=== PATIENT | female | born 1985 | race Caucasian/White ===

== ENCOUNTER 2016-07-30 07:00 | Day surgery (SDC) | payer OTHER ==
[~2016-07-30] VITALS: Ht 157.5 cm; Wt 61.1 kg
[~2016-07-30 07:00] MED LIST: BUPR200T34 PO; IBUP800T28 PO; OXYC-407 PO
[2016-07-30] MEDS ORDERED: Succinylcholine Chloride 20 mg/mL 5 mL Inj ONE (07:01)
[2016-07-30] MEDS ORDERED: fentaNYL-PF 50 mCg/mL 2 mL Inj ONE (07:01)
[2016-07-30] MEDS ORDERED: Dexamethasone 4 mg/mL Inj ONE (07:01)
[2016-07-30] MEDS ORDERED: Neostigmine 1 mg/mL 10 mL Inj ONE (07:01)
[2016-07-30] MEDS ORDERED: Ondansetron 2 mg/mL 2 mL Inj ONE (07:01)
[2016-07-30] MEDS ORDERED: MetoCLOpramide 5 mg/mL 2 mL Inj ONE (07:01)
[2016-07-30] MEDS ORDERED: Glycopyrrolate 0.2 MG/ML 1mL Inj ONE (07:01)
[2016-07-30] MEDS ORDERED: Rocuronium 10 mg/mL 5 mL Inj ONE (07:01)
[2016-07-30] MEDS ORDERED: Propofol 10,000 mCg/mL 20 mL Inj ONE (07:01)
[2016-07-30 07:15] VITALS: BP 110/59; PULSE 77; RESP 16; O2SAT 100
[2016-07-30] MEDS: Lactated Ringer's 1,000 ML IV SCH ×2 (07:15→08:46)
[2016-07-30 07:39] LABS: BASOPHILS % (AUTO) 0.2 % (0-3); EOSINOPHILS % (AUTO) 8.7 % (0-5); MONOCYTES % (AUTO) 9.3 % (4-12); Mean Corpuscular Hemoglobin 28.2 pg (27.0-35.0); Mean Corpuscular Volume 82.2 fL (81-100); NEUTROPHILS % (AUTO) 56.8 % (40-74); Platelet Count 223 bil/L (150-400)
[2016-07-30] MEDS ORDERED: HYDROmorphone 1 mg/mL Inj IVPUSH PRN ×2 (09:20→09:55)
[2016-07-30] MEDS ORDERED: MetoCLOpramide 5 mg/mL 2 mL Inj IVPUSH PRN ×2 (09:20→09:55)
[2016-07-30] MEDS ORDERED: Labetalol 5 mg/mL 4 mL Inj IV PRN (09:20)
[2016-07-30] MEDS ORDERED: EPHEDrine Sulfate 50 mg/mL Inj IVPUSH PRN (09:20)
[2016-07-30] MEDS ORDERED: Phenylephrine 10,000 mCg/mL Inj IVPUSH PRN (09:20)
[2016-07-30] MEDS ORDERED: Ondansetron 2 mg/mL 2 mL Inj IVPUSH PRN ×2 (09:20→09:55)
[2016-07-30] MEDS ORDERED: Lactated Ringer's 500 ML IV PRN (09:20)
[2016-07-30] MEDS ORDERED: Lactated Ringer's 1,000 ML IV SCH (09:20)
[2016-07-30] MEDS ORDERED: Atropine 0.4 mg/mL Inj IVPUSH PRN (09:20)
[2016-07-30] MEDS ORDERED: Bupivacaine-MPF 0.5% W/EPI 30 mL Inj INFILTRATE ONE (09:29)
[2016-07-30 09:45] VITALS: BP 129/68; PULSE 99; RESP 16; O2SAT 100
[2016-07-30 09:50] VITALS: BP 125/66; PULSE 88; RESP 18; O2SAT 100
[2016-07-30] MEDS ORDERED: diphenhydrAMINE 25 mg Capsule PO PRN (09:55)
--- NOTE | 2016-07-30 09:58 | PCM.DIGYN ---
Surgical Discharge Instruction Dates of Hospitalization Date of Hospital Admission Providers Admitting Physician: Primary Care Physician: Shanita Attending Physician: Nedra Chowdhury MD Diet Discharge Diet: No restrictions Activity Discharge Activity-General: Be up and about, Activity as pain allows, No lifting >15 pounds for 2 weeks, No driving while taking narcotic Dressing and Incisional Care Hygiene: May shower, NO bathtub, hot tub or whirlpool Follow Up Plan Follow-up appointment: Weeks (2) Call your provider for: Fever, Chills, Shortness of breath, Heavy vaginal bleeding, Wound redness, Increasing pain Nedra Chowdhury MD July 30, 2016 09:58
[2016-07-30] MEDS: fentaNYL-PF 50 mCg/mL 2 mL Inj IVPUSH PRN ×2 (10:03→10:15)
[2016-07-30 10:05] VITALS: BP 123/71; PULSE 78; RESP 12; O2SAT 98
[2016-07-30 10:30] VITALS: BP 120/70; PULSE 74; RESP 16; O2SAT 98
[2016-07-30] MEDS: oxyCODONE-Acetamin 5-325 mg Tablet PO PRN ×2 (10:42→12:00)
--- NOTE | 2016-07-30 12:15 | PCM.HPANE ---
Patient Data Surgeon Admitting Provider: Attending Provider:Nedra Chowdhury MD Primary Care Physician:Shanita Other Provider:Nataly Luna Anesthesia Reason for Visit Family Planning Ht/WT & BMI Height (Feet): 5 Height (Inches): 2 Weight (Kilograms): 61.1 Body Mass Index 25.00 Allergies Coded Allergies: No Known Allergies (Unverified , 07/27/16) Past Anesthesia History Anesthesia History: Denies:: Abnormal Airway, Anesthesia Reactions, Difficult Intubation, Fam Anesthesia Reaction, Fam Malignant Hypertherm, Malignant Hyperthermia Diabetes History Hx Diabetes?: No MRSA MRSA: No Medications Reported Medications Oxycodone HCl/Acetaminophen 5-325 (Endocet 5-325)1 Each Tablet1 Tablet PO QID PRN For Pain 07/27/16 Ibuprofen 800 Mg [id number] Mg PO TID PRN For Pain Ref 0 07/27/16 Bupropion HCl (Bupropion HCl ER)200 Mg Tablet.er200 Mg PO DAILY 07/27/16 History History of ENT Problems?: Yes HEENT History: Positive for:: Hearing Problem (Scar tissue in ear drums) Denture Type: None Teeth Condition: Within Normal Limits Other HEENT Pertinent History: Tonsils out d/to strep throat Hx of Heart Problems?: No Cardiovascular History: Denies:: AICD Pacemaker Hx of Respiratory Problem?: Yes Respiratory History: Positive for:: Asthma (As a child) Hx Neurologic Problems?: No Hx of GI Problems?: No Hx of Problems?: No Female Hx: Denies:: Currently Problems with Breasts? Hx Musculoskeletal Problems?: Yes Musculoskeletal History: Positive for:: Musculoskeletal Trauma (Fx tailbone at 13 y/o) Hx of Psycho/Social Problems?: Yes Psycho Social History: Positive for:: Hx Depression Hx Surgeries?: Yes (Tonsils, wisdom teeth) Hx Any Other Health Problems?: Yes Other History: Denies:: Cancer Endocrine Disease Hospitalization Thyroid Disease History Blood Transfusions: Positive for:: Accept Blood Products? Hx Diabetes: No Hx Alcohol Use: Yes (2 times month)Hx Substance Use: Yes (10 times a month) Stop/Bang S-Snoring: Do You Snore Loudly: No T-Tired: feel tired, fatigued: No O-Obsered: Observed not breath: No P-Blood Pressure: treated: No B- Body Mass Index > 35 kg/m2: No A- Age over 50: No N- Neck Large Circumference: No G- Gender Male: No DESHAUN Total Score: 0 Risk Assessment Category Category 1A: Patient has history of documented sleep apnea, and HAS NOT received any narcotic, sedative or anesthesia administration during this stay. Category 1B: Patient has history of documented sleep apnea, and HAS received any narcotic , sedative or anesthesia administration during this stay Category 2: Patient has SUSPECTED Obstructive Sleep Apnea, and HAS received any narcotic , sedative or anesthesia administration during this stay. Category 3: Patient has SUSPECTED Obstructive Sleep Apnea and HAS NOT received narcotic, sedative or anesthesia administration during this stay. Category 4: Outpatient in Procedural Areas with known sleep apnea or who screen positive for High Risk via the STOP/BANG questionnaire. Exam Exam Vital Signs Vital Signs Date Time Temp Pulse Resp B/P Pulse Ox O2 Delivery O2 Flow Rate FiO2 07/30/16 07:15 35.9 77 16 110/59 100 Room Air General Appearance: Alert, Oriented X3, Cooperative, No Acute Distress HEENT/AIRWAY: MP 2, Neck Movement (FROM), Mouth Opening (FROM) Lungs: Clear to Auscultation, Normal Air Movement Heart: Exam Unremarkable, Regular Rate/Rhythm, No Murmurs/Rubs/Gallops Meds/Labs/Diagnostics Admission Meds Current Medications Lactated Ringer's (Lr) 1,000 ml @ 120 mls/hr [id number] IV Last administered on t 07:15; Start 07/30/16 at 05:00; Stop 07/30/16 at 13:19 Plan Impression Patient chart reviewed, patient interviewed and anesthestic plan with risks, benefits, and alternatives discussed, and informed consent obtained. NPO per Anesth. Guidelines: Yes ASA Physical Status: ASA2 Mod Systemic Disease Anesthetic Plan: GA Bene/Risks/Altern/Consents: Yes HP Complete Prior to Induction: Yes Jac Fuentes MD July 30, 2016 07:20
--- NOTE | 2016-07-30 12:15 | PCM.ANEP1 ---
Post Anesthesia Phase 1 PACU Phase 1 Assessment Vital Signs Vital Signs Date Time Temp Pulse Resp B/P Pulse Ox O2 Delivery O2 Flow Rate FiO2 07/30/16 10:30 74 16 120/70 98 Room Air 07/30/16 10:05 78 12 123/71 98 Room Air 07/30/16 09:50 88 18 125/66 100 Simple Mask 10 07/30/16 09:45 36.3 99 16 129/68 100 Simple Mask 10 07/30/16 07:15 35.9 77 16 110/59 100 Room Air Anesthetic Administered: GA Level of Alertness: Awake, talking SPARROW's with Equal Strength: Yes Pain: No Nausea or Vomiting: No Cardiovascular Function and Hy: No Airway Device: Nasal Airway Oxygen Delivery: Room Air Lungs: Clear to Auscultation, Normal Air Movement Dermatome Level: Full Sensation Complications: No Follow up Care: No Jac Fuentes MD July 30, 2016 12:15
--- NOTE | 2016-07-30 13:01 | OP ---
[address] [address] OPERATIVE REPORT PATIENT: BRANDO GALARZA : 1985 MR#: [id number] ADMIT: 07/30/2016 JOB ID: [id number] DATE OF SURGERY: 07/30/2016 PREOPERATIVE DIAGNOSIS(ES): Desires sterilization. POSTOPERATIVE DIAGNOSIS(ES): Desires sterilization. PROCEDURE PERFORMED: Laparoscopic bilateral tubal ligation with Filshie clips. SURGEON: Nedra Chowdhury MD ANESTHESIA: General endotracheal anesthesia. ESTIMATED BLOOD LOSS: 5 cc. FLUID REPLACEMENT: 900 cc of crystalloid. FINDINGS: A 6-week size a normal appearing uterus. Normal fallopian tubes and ovaries bilaterally. No liver and gallbladder. COMPLICATIONS: None apparent. INDICATIONS: This is a 31-year-old, G0 female who presented to our clinic requesting tubal ligation. She was sure that she did not desire any future fertility, having requesting sterilization for the last 10 years and had not been able to find a provider who would do so for her. She has also tried multiple contraceptive options and multiple long-acting reversible contraceptives which she had failed or was unhappy with, and she again presented requesting tubal ligation. After discussing risks, benefits, and alternatives with her including risk of regret and having her sign a 30-day [facility] consent, she then elected to proceed. PROCEDURE: The patient was taken to the operating room on the morning of the . She was placed in dorsal lithotomy position and prepped and draped in the usual sterile fashion for the procedure. After general endotracheal anesthesia was administered, the bivalve speculum was placed. The cervix was then grasped with a tenaculum, at which point an acorn uterine manipulator was inserted. Attention was then turned abdominally where, after an injection with local anesthetic, the Veress needle was inserted through the midline of the umbilicus and the abdomen was then insufflated with appropriately rising CO2 pressures. A 5 mm incision was then made with the scalpel, and the 5 mm scope was then inserted under direct visualization without any difficulty. Intra-abdominal survey revealed no evidence of any entrance injuries, normal-appearing liver and gallbladder, and normal uterus, fallopian tubes, and ovaries. Next, an 8 mm suprapubic port was placed after injection with local anesthetic. An 8 mm incision was placed suprapubically, and an 8 mm port was then placed under direct visualization. The patient was placed in Trendelenburg positioning, and her bowel was displaced from the pelvis. Using a blunt probe, her ovaries and fallopian tubes were visualized again and noted to be normal. Next, the Filshie clip applicator was inserted through the suprapubic port, and a Filshie clip was first placed in the left fallopian tube. After reloading the device, the 2nd Filshie clip was then placed on the right fallopian tube. An appropriate placement was noted. The procedure was then completed, and the insufflation was released from the abdomen. The patient was given two deep breaths, and the ports were then removed. The skin was then closed with 4-0 Vicryl and Dermabond was placed on top of these. The patient tolerated this procedure well, recovered in PACU. All sponge, needle, and instrument counts were correct. WILBERT
== END 2016-07-30 23:59 | disposition home or self-care (01) ==
LOC: SAS 07:00
PROVIDERS: ATTEND Obstetrics & Gynecology
DX: Z30.2 Encounter for sterilization (principal); F32.9 Major depressive disorder, single episode, unspecified
CPT/HCPCS: 36415; 58671; 85025; J0330; J1100; J1885; J2405; J2710; J2765; J3010; J7120